=== PATIENT | female | born 1960 | race Caucasian/White ===

== ENCOUNTER 2016-11-28 10:04 | Emergency (ER) | payer SELFPAY ==
[2016-11-28 10:11] VITALS: BP 132/80
[2016-11-28] MEDS ORDERED: NORMAL SALINE 1000 ML 1,000 ML IV ONE (10:20)
--- NOTE | 2016-11-28 10:22 | ER Document Report ---
ED Medical Screen (RME) - General Chief Complaint: Abdominal Pain Stated Complaint: SIDE AND BACK PAIN Time Seen by Provider: 11/28/16 10:13 Mode of Arrival: Wheelchair Information source: Patient, Relative Notes: 56-year-old female chronic alcoholic presents with complaints of flank pain of month's duration as well as sores all throughout her body. I have greeted and performed a rapid initial assessment of this patient. A comprehensive ED assessment and evaluation of the patient, analysis of test results and completion of the medical decision making process will be conducted by additional ED providers. PHYSICAL EXAMINATION: GENERAL: Well-appearing, well-nourished and in no acute distress. HEAD: Atraumatic, normocephalic. EYES: Pupils equal round extraocular movements intact, conjunctiva are normal. ENT: Nares patent NECK: Normal range of motion LUNGS: No respiratory distress Musculoskeletal: Normal range of motion, mild tenderness of the right flank NEUROLOGICAL: Normal speech, normal gait. PSYCH: Normal mood, normal affect. SKIN: scab on nose, multiple small sores on body TRAVEL OUTSIDE OF THE [place] IN LAST 30 DAYS: No - Related Data Allergies/Adverse Reactions: No Known Allergies Allergy (Unverified 11/28/16 10:08) Past Medical History Renal/ Medical History: Denies: Hx Peritoneal Dialysis - Immunizations Hx Diphtheria, Pertussis, Tetanus Vaccination: - unknown Physical Exam - Vital signs Vitals: Temp Pulse Resp BP Pulse Ox 97.6 F 105 H 22 H 132/80 H 100 11/28/16 10:08 11/28/16 10:08 11/28/16 10:08 11/28/16 10:08 11/28/16 10:08 Course - Vital Signs Vital signs: Temp Pulse Resp BP Pulse Ox 97.6 F 105 H 22 H 132/80 H 100 11/28/16 10:08 11/28/16 10:08 11/28/16 10:08 11/28/16 10:08 11/28/16 10:08
[2016-11-28 10:59] LABS: ABSOLUTE MONOCYTES (AUTO) 0.5 10^3/uL (0.1-1.4); BASOPHILS % (AUTO) 0.7 % (0-2); EOSINOPHILS % (AUTO) 0.5 % (0-6); HEMATOCRIT 34.8 % (36.0-47.0); HGB HCT DIFFERENCE 1.2; LYMPHOCYTES % (AUTO) 15.3 % (13-45); MEAN CORPUSCULAR HEMOGLOBIN 31.9 pg (27.0-33.4); MEAN CORPUSCULAR HGB CONC 34.5 g/dL (32.0-36.0); MEAN CORPUSCULAR VOLUME 93 fl (80-97); MONOCYTES % (AUTO) 7.9 % (3-13); RED BLOOD COUNT 3.76 10^6/uL (3.72-5.28); SEGMENTED NEUTROPHILS % (AUTO) 75.6 % (42-78); WHITE BLOOD COUNT 6.6 10^3/uL (4.0-10.5)
[2016-11-28 11:02] LABS: APPEARANCE,URINE SLIGHTLY-CLOUDY; BILIRUBIN,URINE NEGATIVE (NEGATIVE); GLUCOSE, URINE >=500 mg/dL (NEGATIVE); KETONES,URINE TRACE mg/dL (NEGATIVE); LEUKOCYTE ESTERASE,URINE SMALL (NEGATIVE); NITRITE,URINE NEGATIVE (NEGATIVE); PROTEIN,URINE NEGATIVE (NEGATIVE); URINE SPECIFIC GRAVITY 1.017
[2016-11-28 11:28] LABS: URINE BARBITURATES SCREEN NEGATIVE; URINE METHADONE SCREEN NEGATIVE; URINE OPIATES LOW NEGATIVE; URINE PHENCYCLIDINE SCREEN NEGATIVE
[2016-11-28 12:18] LABS: ALANINE AMINOTRANSFERASE 30 U/L (9-52); ALBUMIN 3.7 g/dL (3.5-5.0); ALKALINE PHOSPHATASE 53 U/L (38-126); ANION GAP 8 (5-19); ASPARTATE AMINO TRANSFERASE 16 U/L (14-36); BILIRUBIN,DIRECT 0.4 mg/dL (0.0-0.4); BILIRUBIN,TOTAL 0.5 mg/dL (0.2-1.3); BLOOD UREA NITROGEN 9 mg/dL (7-20); CALCIUM 9.4 mg/dL (8.4-10.2); CARBON DIOXIDE 25 mmol/L (22-30); CHLORIDE 98 mmol/L (98-107); CREATININE RESULT 0.46 mg/dL (0.52-1.25); GLUCOSE 206 mg/dL (75-110); LIPASE 961.2 U/L (23-300); POTASSIUM 3.6 mmol/L (3.6-5.0); SODIUM 130.6 mmol/L (137-145); TOTAL PROTEIN 6.9 g/dL (6.3-8.2)
[2016-11-28 12:21] LABS: ALCOHOL < 10 mg/dL (NONE DETECTED)
--- NOTE | 2016-11-28 12:44 | ER Document Report ---
ED GI/ - General Chief Complaint: Abdominal Pain Stated Complaint: SIDE AND BACK PAIN Time Seen by Provider: 11/28/16 10:13 Mode of Arrival: Wheelchair Information source: Patient Notes: Patient is a 56-year-old chronic alcoholic who presents to the ER today for bilateral flank pain 6 months. Patient admits to nausea. Patient also complains of sores on her nose, right ear, left arm, left chest after "falling in a pool" approximately a week ago. Sisters do state that she has a history of falling whenever she drinks too much. Patient states that the sores "will not go away." She denies any fever, chills, vomiting, diarrhea, dysuria, hematuria, history of kidney stones. TRAVEL OUTSIDE OF THE [place] IN LAST 30 DAYS: No - Related Data Allergies/Adverse Reactions: No Known Allergies Allergy (Unverified 11/28/16 10:08) Home Medications: Current Home Medications Amlodipine Besylate [Amlodipine Besylate] 1 tab PO DAILY 11/28/16 [History] Past Medical History - General Information source: Patient, Relative - Social History Smoking Status: Current Every Day Smoker Chew tobacco use (# tins/day): - 45 Frequency of alcohol use: Heavy Drug Abuse: None Family History: Reviewed & Not Pertinent Patient has suicidal ideation: No Patient has homicidal ideation: No - Past Medical History Cardiac Medical History: Reports: Hx Hypertension Renal/ Medical History: Denies: Hx Peritoneal Dialysis Surgical Hx: Negative - Immunizations Hx Diphtheria, Pertussis, Tetanus Vaccination: - unknown Review of Systems - Review of Systems Constitutional: No symptoms reported EENT: No symptoms reported Cardiovascular: No symptoms reported Respiratory: No symptoms reported Gastrointestinal: No symptoms reported Genitourinary: See HPI Female Genitourinary: No symptoms reported Musculoskeletal: No symptoms reported Skin: See HPI Hematologic/Lymphatic: No symptoms reported Neurological/Psychological: No symptoms reported Physical Exam - Vital signs Vitals: Temp Pulse Resp BP Pulse Ox 97.6 F 105 H 22 H 132/80 H 100 11/28/16 10:08 11/28/16 10:11/28/16 10:11/28/16 10:11/28/16 10:08 - Notes Notes: PHYSICAL EXAMINATION: GENERAL: Appears older than stated age, in no acute distress. HEAD: scabbed abrasion to anterior nose and right ear with erythema, normocephalic. EYES: Pupils equal round and reactive to light, extraocular movements intact, sclera anicteric, conjunctiva are normal. NECK: Normal range of motion, supple without lymphadenopathy LUNGS: CTAB and equal. No wheezes rales or rhonchi. HEART: Regular rate and rhythm without murmurs ABDOMEN: Soft, no tenderness. No guarding, no rebound BACK: no vertebral tenderness, normal ROM GI/: no CVA tenderness EXTREMITIES: Normal range of motion, no pitting edema. No cyanosis. NEUROLOGICAL: Cranial nerves grossly intact. Normal sensory/motor exams. PSYCH: Normal mood, normal affect. SKIN: Warm, Dry, normal turgor, multiple scabs to pt's body with some erythema to right ear, anterior nose, left dorsal hand with yellow crust Course - Re-evaluation Re-evalutation: 11/28/16 12:42 pt has no tenderness at all to abdominal exam or CVA tenderness, her lipase is 961 but she isn't having nausea or vomiting and her WBC is normal with small leukocytes and glucose on UA. I will treat her impetigo with an oral abx as she has it in multiple places and have advised her to stop drinking. She states she hasn't drank in 8 days. 11/28/16 12:43 11/28/16 12:43 - Vital Signs Vital signs: Temp Pulse Resp BP Pulse Ox 97.6 F 105 H 22 H 132/80 H 100 11/28/16 10:08 11/28/16 10:08 11/28/16 10:08 11/28/16 10:08 11/28/16 10:08 - Laboratory Result Diagrams: 11/28/16 10:28 11/28/16 11:40 Laboratory results interpreted by me: 11/28/16 11/28/16 11/28/16 10:28 10:30 11:40 Hct 34.8 L RDW 16.0 H Sodium 130.6 L Creatinine 0.46 L Glucose 206 H Lipase 961.2 H Urine Glucose (UA) >=500 H Urine Ketones TRACE H Urine Urobilinogen 4.0 H Ur Leukocyte Esterase SMALL H Discharge - Discharge Clinical Impression: Pancreatitis Qualifiers: Chronicity: chronic Pancreatitis type: alcohol induced Qualified Code(s): K86.0 - Alcohol-induced chronic pancreatitis Condition: Stable Disposition: HOME, SELF-CARE Additional Instructions: Return immediately for any new or worsening symptoms. Follow up with primary care provider, call tomorrow to make followup appointment. Prescriptions: Amoxicillin 500 mg PO TID #30 capsule Ondansetron [Zofran Odt 4 mg Tablet] 1 - 2 tab PO Q4H PRN #30 tab.rapdis PRN Reason: For Nausea/Vomiting Referrals: ROSIBEL ANDRADE MD [Primary Care Provider] - Follow up as needed
== END 2016-11-28 13:39 | disposition home or self-care (01) ==
LOC: ER 10:04
DX: K86.0 Alcohol-induced chronic pancreatitis (principal); R10.9 Unspecified abdominal pain; M54.9 Dorsalgia, unspecified; I10 Essential (primary) hypertension; F17.200 Nicotine dependence, unspecified, uncomplicated
CPT/HCPCS: 99284; 36415; 80307 ×2; 83690; 85025; 80053; 81001; L0172; J7030